=== PATIENT | female | born 2000 | race Caucasian/White ===

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

== ENCOUNTER 2022-11-22 19:40 | Emergency (ER) | payer OTHER ==
[~2022-11-22] VITALS: Ht 172.7 cm; Wt 59.4 kg
== END 2022-11-22 22:01 | disposition home or self-care (01) ==
LOC: ER 19:40
PROVIDERS: General Practice
DX: R53.81 Other malaise (principal); D64.9 Anemia, unspecified; Z3A.16 16 weeks gestation of pregnancy

== ENCOUNTER 2022-12-14 14:23 | Outpatient (CLI) | payer OTHER | END 2022-12-14 16:27 | disposition home or self-care (01) | LOC: PRENATAL 14:23 | PROVIDERS: ATTEND Obstetrics & Gynecology Maternal & Fetal Medicine | DX: O35.3XX0 Maternal care for (suspected) damage to fetus from viral disease in mother, not applicable or unspecified (principal); O44.00 Complete placenta previa NOS or without hemorrhage, unspecified trimester; Z3A.20 20 weeks gestation of pregnancy ==

== ENCOUNTER 2023-03-07 13:27 | Outpatient (CLI) | payer OTHER | END 2023-03-07 13:30 | disposition home or self-care (01) | LOC: PRENATAL 13:27 | PROVIDERS: ATTEND Obstetrics & Gynecology Maternal & Fetal Medicine | DX: O26.849 Uterine size-date discrepancy, unspecified trimester (principal); O36.8199 Decreased fetal movements, unspecified trimester, other fetus; Z3A.31 31 weeks gestation of pregnancy ==

== ENCOUNTER 2023-04-14 01:00 | Inpatient (IN) | payer OTHER ==
[~2023-04-14] VITALS: Ht 170.2 cm; Wt 68.5 kg
[2023-04-14 01:39] LABS: URINE APPEARANCE Cloudy; URINE BILIRRUBIN Negative (NEGATIVE); URINE BLOOD Negative; URINE COLOR Yellow; URINE GLUCOSE Negative (NEGATIVE); URINE LEUKOCYTE Negative; URINE NITRATE Negative; URINE PROTEIN Negative (NEGATIVE)
[2023-04-14 01:43] LABS: URINE BACTERIA 1719.8 uL (0.0-1933); URINE EPITHELIAL CELLS 90.2 uL (0.0-38.8); URINE RBC 4.5 uL (0.0-20.8); URINE WBC 9.1 uL (0.0-23.2)
[2023-04-14 01:43] LABS: HEMOGLOBIN 12.7 g/dL (12.0-15.00); MEAN CELL VOLUME 88.3 fL (80.00-100.00); MEAN CORPUSCULAR HEMOGLOBIN 30.3 pg (27.00-32.0); MEAN CORPUSCULAR HGB CONC 34.4 g/dl (32.0-36.0); PLATELET COUNT 152 K/uL (150-450); RED BLOOD COUNT 4.19 M/uL (4.00-6.00); RED CELL DISTRIBUTION WIDTH 13.3 % (11.5-14.5)
[2023-04-14 02:15] LABS: INR < 0.93; PARTIAL THROMBOPLASTIN TIME 25.4 SECONDS (22.0-34.0)
[2023-04-14 04:46] LABS: ABG PH 7.382 (7.35-7.45); ABG pCO2 43.1 mmHg (35-45)
[2023-04-14 04:47] LABS: ABG PO2 13.6 mmHg (80-100); BASE EXCESS -0.2 mmol/l; BICARBONATE 25.1 mmol/l (23-25); SaO2 15.4 %; Tco2 26.4 mmol/l; o2 21 %
[2023-04-16] MEDS ORDERED: COLACE100 MG PO (09:02)
[2023-04-16] MEDS ORDERED: IBUPROFEN400 MG PO (09:02)
== END 2023-04-16 14:39 | disposition home or self-care (01) | DRG 807 ==
LOC: OB/GYN 01:00 → LDR 01:00 → OB/GYN 04:25
PROVIDERS: Obstetrics & Gynecology; ADMIT Obstetrics & Gynecology; ATTEND Obstetrics & Gynecology
PROC: 10E0XZZ Delivery of Products of Conception, External Approach (ICD-10-PCS; principal; 2023-04-14)
PROC: 0UQG7ZZ Repair Vagina, Via Natural or Artificial Opening (ICD-10-PCS; 2023-04-14)
PROC: 4A1HXCZ Monitoring of Products of Conception, Cardiac Rate, External Approach (ICD-10-PCS; 2023-04-14)
DX: O71.4 Obstetric high vaginal laceration alone (principal); Z37.0 Single live birth; Z3A.37 37 weeks gestation of pregnancy; Z20.822 Contact with and (suspected) exposure to COVID-19

== ENCOUNTER 2023-06-05 03:06 | Emergency (ER) | payer OTHER ==
[~2023-06-05] VITALS: Ht 172.7 cm; Wt 63.5 kg
[~2023-06-05 03:06] MED LIST: COLACE100 MG PO; IBUPROFEN400 MG PO
[2023-06-05] MEDS ORDERED: ONDANSETRON HCL 2 MG/ML VIAL IV STA (04:22)
[2023-06-05] MEDS ORDERED: FAMOTIDINE/PF 20 MG/2 ML VIAL IV PUSH STA (04:23)
[2023-06-05] MEDS ORDERED: 0.9 % SODIUM CHLORIDE 1,000 ML IV ONE (04:30)
[2023-06-05 05:19] LABS: PH,URINE 5.5 (5.0-8.0); URINE APPEARANCE Clear; URINE BILIRRUBIN Negative (NEGATIVE); URINE BLOOD Negative; URINE COLOR Yellow; URINE GLUCOSE Negative (NEGATIVE); URINE LEUKOCYTE Trace; URINE NITRATE Negative; URINE PROTEIN 30 (NEGATIVE)
[2023-06-05 05:24] LABS: URINE BACTERIA 311.1 uL (0.0-1933); URINE EPITHELIAL CELLS 70.4 uL (0.0-38.8); URINE RBC 4.3 uL (0.0-20.8); URINE WBC 10.3 uL (0.0-23.2)
[2023-06-05 05:24] LABS: HEMATOCRIT 40.1 % (36.0-45.00); HEMOGLOBIN 13.8 g/dL (12.0-15.00); MEAN CELL VOLUME 89.4 fL (80.00-100.00); MEAN CORPUSCULAR HEMOGLOBIN 30.7 pg (27.00-32.0); MEAN CORPUSCULAR HGB CONC 34.4 g/dl (32.0-36.0); PLATELET COUNT 138 K/uL (150-450); RED BLOOD COUNT 4.49 M/uL (4.00-6.00); RED CELL DISTRIBUTION WIDTH 12.8 % (11.5-14.5)
[2023-06-05 05:31] LABS: CALCIUM 9.9 mg/dL (8.5-10.1); CREATININE SERUM 1.03 mg/dL (0.55-1.02); GFR 66.4; POTASSIUM 3.06 mEq/L (3.5-5.1)
[2023-06-05] MEDS ORDERED: ONDANSETRON ODT4 MG PO (07:24)
== END 2023-06-05 07:47 ==
LOC: ER 03:06
PROVIDERS: General Practice
DX: R55 Syncope and collapse (principal); N64.4 Mastodynia

== ENCOUNTER 2023-06-05 10:54 | Inpatient (IN) | payer OTHER ==
[~2023-06-05] VITALS: Ht 121.9 cm; Wt 54.4 kg
[~2023-06-05 10:54] MED LIST changes: +ONDANSETRON ODT4 MG PO
[2023-06-05] MEDS ORDERED: FAMOTIDINE/PF 20 MG/2 ML VIAL IV SCH (13:17)
[2023-06-05] MEDS ORDERED: VANCOMYCIN HCL 1,000 MG in 0.9 % SODIUM CHLORIDE 250 ML IV SCH (13:20)
[2023-06-05] MEDS ORDERED: POTASSIUM CHLORIDE-0.45% NACL 1,000 ML IV ONE (13:30)
[2023-06-05] MEDS ORDERED: 0.9 % SODIUM CHLORIDE 1,000 ML IV SCH (13:30)
[2023-06-05] MEDS ORDERED: DIPHENHYDRAMINE HCL 50 MG/ML VIAL 1ML IV SCH (18:41)
[2023-06-06] MEDS ORDERED: LINEZOLID IN DEXTROSE 5% 600 MG/300 ML PIGGYBAG IV SCH (09:00)
[2023-06-06] MEDS ORDERED: ACETAMINOPHEN 500 MG GEL..CAP PO PRN (09:15)
[2023-06-06 18:46] LABS: HEMATOCRIT 35.9 % (36.0-45.00); HEMOGLOBIN 12.6 g/dL (12.0-15.00); MEAN CELL VOLUME 87.2 fL (80.00-100.00); MEAN CORPUSCULAR HEMOGLOBIN 30.5 pg (27.00-32.0); RED BLOOD COUNT 4.11 M/uL (4.00-6.00); RED CELL DISTRIBUTION WIDTH 13.4 % (11.5-14.5)
[2023-06-06 18:49] LABS: PLATELET COUNT 120 K/uL (150-450)
[2023-06-06 19:09] LABS: ALBUMIN 3.5 gm/dL (3.4-5.0); BILIRUBIN TOTAL 0.42 mg/dL (0.3-1.2); CALCIUM 9.4 mg/dL (8.5-10.1); CREATININE SERUM 0.89 mg/dL (0.55-1.02); GFR 78.6; POTASSIUM 3.27 mEq/L (3.5-5.1); TOTAL PROTEIN 6.5 gm/dL (6.4-8.2)
[2023-06-06 22:19] LABS: URINE APPEARANCE Clear; URINE BILIRRUBIN Negative (NEGATIVE); URINE BLOOD Negative; URINE COLOR Yellow; URINE LEUKOCYTE Trace; URINE NITRATE Negative; URINE PROTEIN 30 (NEGATIVE)
[2023-06-06 22:22] LABS: URINE BACTERIA 2950.8 uL (0.0-1933); URINE WBC 59.2 uL (0.0-23.2)
[2023-06-06 22:36] LABS: URINE GLUCOSE 100 MG/DL (NEGATIVE)
[2023-06-07] MEDS ORDERED: CEFTRIAXONE SODIUM 2,000 MG in 0.9 % SODIUM CHLORIDE 100 ML IV SCH (16:00)
[2023-06-07] MEDS ORDERED: CEFTRIAXONE SODIUM 2,000 MG VIAL IV ONE (21:30)
[2023-06-08 08:38] LABS: HEMATOCRIT 32.1 % (36.0-45.00); HEMOGLOBIN 11.2 g/dL (12.0-15.00); MEAN CELL VOLUME 86.4 fL (80.00-100.00); MEAN CORPUSCULAR HEMOGLOBIN 30.1 pg (27.00-32.0); MEAN CORPUSCULAR HGB CONC 34.9 g/dl (32.0-36.0); RED BLOOD COUNT 3.71 M/uL (4.00-6.00); RED CELL DISTRIBUTION WIDTH 13.5 % (11.5-14.5)
[2023-06-08 08:41] LABS: PLATELET COUNT 121 K/uL (150-450)
[2023-06-08] MEDS ORDERED: CEFTRIAXONE SODIUM 2,000 MG in 0.9 % SODIUM CHLORIDE 100 ML IV SCH (09:00)
[2023-06-08 09:12] LABS: ALBUMIN 2.9 gm/dL (3.4-5.0); BILIRUBIN TOTAL 0.5 mg/dL (0.3-1.2); CREATININE SERUM 0.83 mg/dL (0.55-1.02); GFR 85.19; GLOBULINA 2.9 G/DL (2.4-3.5); POTASSIUM 3.57 mEq/L (3.5-5.1); TOTAL PROTEIN 5.8 gm/dL (6.4-8.2)
[2023-06-08] MEDS ORDERED: KETOROLAC TROMETHAMINE 30 MG VIAL IM STA (17:12)
[2023-06-08] MEDS ORDERED: KETOROLAC TROMETHAMINE 30 MG VIAL IM SCH (17:13)
[2023-06-08] MEDS ORDERED: LACTULOSE 20 G/30 ML BLIST.PACK PO SCH (17:14)
[2023-06-09] MEDS ORDERED: LACTULOSE 20 G/30 ML BLIST.PACK PO SCH (09:00)
[2023-06-10 10:13] LABS: HEMATOCRIT 30.4 % (36.0-45.00); HEMOGLOBIN 10.6 g/dL (12.0-15.00); MEAN CELL VOLUME 85.5 fL (80.00-100.00); MEAN CORPUSCULAR HEMOGLOBIN 29.8 pg (27.00-32.0); MEAN CORPUSCULAR HGB CONC 34.9 g/dl (32.0-36.0); RED BLOOD COUNT 3.55 M/uL (4.00-6.00)
[2023-06-10 10:16] LABS: PLATELET COUNT 116 K/uL (150-450)
[2023-06-10 10:30] LABS: INR 0.96; PARTIAL THROMBOPLASTIN TIME 28.3 SECONDS (22.0-34.0); PROTHROMBIN TIME 10.1 SECONDS (9.0-11.5)
[2023-06-10 11:18] LABS: ALBUMIN 2.5 gm/dL (3.4-5.0); BILIRUBIN TOTAL 0.29 mg/dL (0.3-1.2); CALCIUM 9.1 mg/dL (8.5-10.1); CREATININE SERUM 0.78 mg/dL (0.55-1.02); GFR 91.52; GLOBULINA 2.8 G/DL (2.4-3.5); POTASSIUM 3.34 mEq/L (3.5-5.1); TOTAL PROTEIN 5.3 gm/dL (6.4-8.2)
[2023-06-10] MEDS ORDERED: POTASSIUM CHLORIDE 20MEQ/100ML H2O PB IV ONE (16:00)
[2023-06-11] MEDS ORDERED: OxyCODONE HCL/APAP UD (PERCOCET) PO PRN (00:45)
== END 2023-06-11 16:53 | disposition home or self-care (01) | DRG 601 ==
LOC: ER 10:54 → MEDI 13:46 → SEC-K 13:46 → MEDI 21:05
PROVIDERS: Internal Medicine Infectious Disease; ADMIT Internal Medicine; ATTEND Internal Medicine
PROC: BW28ZZZ Computerized Tomography (CT Scan) of Head (ICD-10-PCS; principal; 2023-06-05)
PROC: B030ZZZ Magnetic Resonance Imaging (MRI) of Brain (ICD-10-PCS; 2023-06-06)
DX: N61.0 Mastitis without abscess (principal); R55 Syncope and collapse
CPT/HCPCS: 70553